=== PATIENT | female | born 1995 | race Caucasian/White ===

== ENCOUNTER 2022-01-08 11:46 | Emergency (ER) | payer OTHER ==
[2022-01-08 12:38] LABS: HEMOGLOBIN 12.1 gm/dl (12.3-15.3); RED BLOOD COUNT 3.87 M/UL (4.00-5.10); WHITE BLOOD COUNT 7.3 K/UL (4.5-11.0)
[2022-01-08 12:56] LABS: BUN/CREATININE RATIO 12 (0-10)
== END 2022-01-08 16:15 | disposition home or self-care (01) ==
LOC: ER1 11:46
PROVIDERS: Physician Assistant
DX: O21.9 Vomiting of pregnancy, unspecified (principal); O99.891 Other specified diseases and conditions complicating pregnancy; R19.7 Diarrhea, unspecified; Z3A.18 18 weeks gestation of pregnancy
CPT/HCPCS: 80053; 81001; 82962; 85025; 99284